=== PATIENT | male | born 1955 | race Caucasian/White ===

== ENCOUNTER 2018-08-17 20:10 | Emergency (ER) | payer OTHER, SELFPAY ==
[2018-08-17 20:25] VITALS: BP 129/78; PULSE 59; RESP 18; TEMP 36.8; O2SAT 98; BMI 28.9
--- NOTE | 2018-08-17 20:34 | ED_ITS ---
HPI - Extremity Injury (Lower) General Chief Complaint: Extremity Injury, Lower Stated Complaint: PAIN IN LEFT LEG Time Seen by Provider: 08/17/18 20:34 Source: patient Mode of arrival: ambulatory Limitations: no limitations History of Present Illness HPI Narrative: Patient is a 62-year-old male here for evaluation of left leg pain. Patient states that 17 days ago he had an inversion injury to his left ankle. He states that he still has some bruising related to that and some discomfort when he walks. He states that a couple days later he did drive back from or again to the local area. Never had his ankle evaluated. He states that today he had a gradual onset of left lateral leg pain just below his knee. No specific trauma. No skin changes. At 1 point he said that he thought that it felt ?hot compared to the other side no chest pain or shortness of breath. Never had a blood clot before. Related Data Home Medications Medication Instructions Recorded Confirmed PYGEUM BARK/ALFALFA/ 1 tab PO Q DAY #0 12/09/11 (#MEN'S MULTIVITAMIN/MULTIMINERAL) ASPIRIN (#ASPIR 81) 81 mg PO Q DAY #0 12/09/11 polyethylene glycol 3350 [Miralax] 17 gm PO QDAY #0 02/01/13 Fish Oil PO DAILY 08/17/18 Vitamin B-1 1 PO DAILY 08/17/18 multivitamin 1 cap PO DAILY 08/17/18 08/17/18 niacin PO DAILY 08/17/18 Previous Rx's Medication Instructions Recorded triamcinolone acetonide [Triderm] 0.1 % TOPICAL BID #60 gm 05/29/17 sulfamethoxazole-trimethoprim 1 tab PO BID #20 tab 11/10/17 testosterone cypionate 200 mg IM QMONTH #1 bot 12/31/17 [Depo-Testosterone] Allergies Allergy/AdvReac Type Severity Reaction Status Date / Time No Known Drug Allergies Allergy Verified 08/17/18 20:30 Review of Systems Constitutional Denies chills and Denies fatigue Cardiovascular Denies chest pain and Denies dyspnea Respiratory Denies dyspnea Gastrointestinal Gastrointestinal: Denies abdominal pain Musculoskeletal Denies myalgias and Denies arthralgias Comments: Left leg pain Integumentary/Breasts Denies lesions and Denies rash Endocrine Denies fatigue Hematologic/Lymphatic Denies easy bleeding and Denies easy bruising [facility] Medical History Healthy adult (Acute) Surgical History No pertinent past surgical history (Acute) History of esophagogastroduodenoscopy (EGD) Status post colonoscopy Status post tonsillectomy and adenoidectomy Family History Child Age: 39 Obesity Grandfather Cancer Grandmother Diabetes mellitus Heart disease Hypertension High cholesterol Mother Diabetes mellitus Heart disease Hypertension High cholesterol Social History Smoking Status: Never smoker Exam Initial Vital Signs Initial Vital Signs: Vital Signs Temperature 98.2 F 08/17/18 20:25 Pulse Rate 59 L 08/17/18 20:25 Respiratory Rate 18 08/17/18 20:25 Blood Pressure 129/78 08/17/18 20:25 Pulse Oximetry 98 08/17/18 20:25 Const General: cooperative, healthy appearing, comfortable, well developed, well groomed and No acute distress Orientation: alert, awake and oriented x3 HENMT Head: normal to inspection and normocephalic Resp Effort & Inspection: normal respiratory effort Skin Lesions: no lesions Rashes: no rashes Neuro General: alert, awake and oriented x3 Motor: muscle tone normal throughout Sensory Exam: no sensory deficits noted Extrem Other: Left hip unremarkable Left thigh unremarkable Left knee unremarkable ACL PCL MCL LCL intact with functional testing No tenderness to palpation along the medial lateral joint line Does have tenderness to palpation over the lateral aspect of the leg. No fibular head tenderness Left calf unremarkable Left ankle unremarkable Psych Appearance: grossly normal and well kempt Course Orders Ordered: ED Orders 08/17/18 20:52 US periph venous low extrem lt Stat Vital Signs - 8 hr 08/17/18 20:25 Temperature 98.2 F Pulse Rate 59 L Respiratory Rate 18 Blood Pressure 129/78 Pulse Oximetry 98 MDM - Extremity Injury (Lower) Imaging Data Venous US: Radiologist's impression: [address] [address] Ultrasound Report Signed Patient: Sumanth Francis R#: [id number] : 4Acct:[id number] Age/Sex: 62 / MDate of Service: 08/17/18 Loc: ED Accession Number: [id number] Procedure: US periph venous low extrem lt Ordering Provider: Ever Avalos D.O. PROCEDURE: US PERIPH VENOUS LOW EXTREM LT INDICATIONS: R/O DVT TECHNIQUE: Real-time imaging, as well as color and pulse Doppler interrogation, were performed of the lower extremity deep veins from the inguinal ligament to the popliteal fossa. COMPARISON: [facility], [place], PVE UNILATERAL LEFT, 08/18/2016, 10:18. FINDINGS: The deep veins are normally compressible, and free of intraluminal thrombus. Color and pulse Doppler demonstrate normal phasic intraluminal flow. There is normal augmentation response to distal compression maneuver. IMPRESSION: Negative for deep venous thrombosis. Note: Concordant preliminary findings given by the battery filler upon the completion of the examination to Dr. Avalos at 2120 hrs. on August 17, 2018. Dictated by: Sky Hart M.D. on 08/17/2018 at 21:44 Approved by: Sky Hart M.D. on 08/17/2018 at 21:45 MDM Narrative Medical decision making narrative: Patient's physical exam is not consistent with cellulitis. Not consistent with a septic joint. He has been asymptomatic in his left proximal fibula area for 15 days. He did have a inversion injury 15 days ago of his ankle however being symptom free for 15 days and suddenly getting the pain makes fracture unlikely. Will hold on x-rays. Ultrasound negative for DVT. I suspect this is muscular. He has no physical exam findings for major ligament injury. I discussed all this with the patient. Will send home with a prepack of [place]. He was given return precautions. Both he and his expressed understanding and agreement with plan. Discharge Plan Departure Patient Disposition: Home Clinical Impression: Left leg pain Instructions: How To Perform RICE (Rest, Ice, Compress, Elevate), DI for Leg Pain Activity Restrictions/Additional Instructions: Recommend that you ice your leg. Take the pain medication as needed. Call your primary care doctor for a follow-up. Return to the emergency department for any new or worsening symptoms Prescriptions: No Action ASPIRIN (#ASPIR 81) 81 mg PO Q DAY Qty: 0 RF: 0 PYGEUM BARK/ALFALFA/ (#MEN'S MULTIVITAMIN/MULTIMINERAL) 1 tab PO Q DAY Qty: 0 RF: 0 polyethylene glycol 3350 [Miralax] 119 GM powder 17 gm PO QDAY Qty: 0 RF: 0 triamcinolone acetonide [Triderm] 0.1 % cream 0.1 % Topical BID Qty: 60 RF: 0 sulfamethoxazole-trimethoprim 800 MG/160 MG tablet 1 tab PO BID Qty: 20 RF: 0 testosterone cypionate [Depo-Testosterone] 200 MG/1 ML oil 200 mg IM QMONTH Qty: 1 RF: 2 multivitamin 1 cap PO DAILY RF: 0 Vitamin B-1 1 PO DAILY RF: 0 Fish Oil PO DAILY RF: 0 niacin PO DAILY RF: 0
--- NOTE | 2018-08-17 20:52 | DI.US.S_ITS ---
PROCEDURE: US PERIPH VENOUS LOW EXTREM LT INDICATIONS: R/O DVT TECHNIQUE: Real-time imaging, as well as color and pulse Doppler interrogation, were performed of the lower extremity deep veins from the inguinal ligament to the popliteal fossa. COMPARISON: [facility], [place], PVE UNILATERAL LEFT, 08/18/2016, 10:18. FINDINGS: The deep veins are normally compressible, and free of intraluminal thrombus. Color and pulse Doppler demonstrate normal phasic intraluminal flow. There is normal augmentation response to distal compression maneuver. IMPRESSION: Negative for deep venous thrombosis. Note: Concordant preliminary findings given by the assistant merchandise manager upon the completion of the examination to Dr. Avalos at 2120 hrs. on August 17, 2018. Dictated by: Sky Hart M.D. on 08/17/2018 at 21:44 Approved by: Sky Hart M.D. on 08/17/2018 at 21:45
[2018-08-17 22:21] VITALS: BP 119/77; PULSE 52; RESP 15; O2SAT 98
[2018-08-17] MEDS: HYDROCODONE/ACET 5/325 PREPACK 1 BOTTLE MISC (22:21)
== END 2018-08-17 22:23 | disposition home or self-care (01) ==
PROVIDERS: Emergency Provider Emergency Medicine; Family Provider Family Medicine; PCP Family Medicine
DX: M79.605 Pain in left leg (principal)
CPT/HCPCS: 93971; 99283; 99284

== ENCOUNTER → 2019-08-25 06:53 | Outpatient (CLI) | payer OTHER, SELFPAY ==
[2019-08-25 08:35] LABS: Add Manual Diff / Slide Review NO; Basophils Absolute Auto 0 /uL (0-100); Basophils Percent Auto 0.6 % (0-2); Eosinophils Absolute Auto 100 /uL (0-450); Hemoglobin 14.6 g/dL (13.5-17.5); Lymphocytes Absolute Auto 1700 /uL (1100-4500); Lymphocytes Percent Auto 28.8 % (25-40); Mean Corpuscular HGB Conc 33.1 % (30-36); Mean Corpuscular Hemoglobin 29.8 PG (26-34); Monocytes Absolute Auto 600 /uL (0-900); Monocytes Percent Auto 10.2 % (3-14); Neutrophils Absolute Auto 3400 /uL (1500-7000); Neutrophils Percent Auto 58.4 % (50-75); Platelet Count 150 X10^3/uL (150-400); Red Blood Cell Count 4.89 X10^6/uL (4.5-5.9); Red Cell Distribution Width 14.8 % (11.6-14.8); White Blood Cell Count 5.7 X10^3/uL (4.5-11.0)
[2019-08-25 09:37] LABS: Alanine Aminotransferase 17 IU/L (21-72); Albumin 4.4 g/dL (3.5-5.0); Albumin Globulin Ratio 1.4 (1.0-2.8); Alkaline Phosphatase 93 U/L (38-126); Aspartate Aminotransferase 35 IU/L (17-59); BUN Creatinine Ratio 27.1 (6-22); Bilirubin Total 0.5 mg/dL (0.2-1.3); Blood Urea Nitrogen 19 mg/dL (9-20); Calcium 9.5 mg/dL (8.4-10.2); Carbon Dioxide 30 mmol/L (22-32); Chloride 102 mmol/L (98-107); Cholesterol 181 mg/dL (140-199); Estimated Glomerular Filt Rate > 60.0 mL/min (>60); Globulin 3.2 g/dL (1.7-4.1); Glucose 101 mg/dL (80-110); HDL Cholesterol 50 mg/dL (40-60); HEMOLYSIS < 15 (0-50); LDL Cholesterol Calculated 115 mg/dL (<100); Potassium 4.4 mmol/L (3.4-5.1); Sodium 140 mmol/L (137-145); Total Protein 7.6 g/dL (6.3-8.2); Triglycerides 81 mg/dL (35-150)
[2019-08-25 10:24] LABS: TSH w/ Reflex to FT4 4.26 uIU/mL (0.47-4.68)
== END ==
PROVIDERS: PCP Family Medicine; Visit Provider Family Medicine
DX: Z00.00 Encounter for general adult medical examination without abnormal findings (principal); Z13.6 Encounter for screening for cardiovascular disorders
CPT/HCPCS: 36415; 80053; 80061; 84443; 85025

== ENCOUNTER → 2019-09-01 11:27 | Outpatient (CLI) | payer OTHER, MEDICARE, SELFPAY | PROVIDERS: PCP Family Medicine; Visit Provider Family Medicine | DX: E29.1 Testicular hypofunction (principal) | CPT/HCPCS: 36415; 84403 ==

== ENCOUNTER 2020-01-20 06:43 | Day surgery (SDC) | payer OTHER, MEDICARE, SELFPAY ==
--- NOTE | 2020-01-20 | PATH_ITS ---
[facility] Accession Number: [id number] . 01 Material submitted: . esophagus, E-G Junction - GE JUNCTION BIOPSIES . 02 Diagnosis: GE Junction Biopsies: Squamocolumnar junctional mucosa with specialized intestinal metaplasia, consistent with Ruiz's esophagus. Negative for dysplasia and malignancy. Special stain for fungal organisms pending; results will be reported as an addendum. MRV 01/21/2020 1151 Local . 02 Electronically signed: . Isabell Rodriguez MD, Pathologist NPI- [id number] . 01 Gross description: . GE JUNCTION BIOPSIES: Received in formalin are multiple fragment(s) of escobar, soft tissue measuring 0.1 x 0.1 x 0.1 cm to 0.2 x 0.2 x 0.2 cm submitted entirely in 1 cassette(s) [place] [place]20202 Local . 02 Pathologist provided ICD-10: Z12.11, K22.70 . 02 CPT . 632144, [id number] Performed at: 01 [facility] [address] [place] [address], [place], [place] [id number] MD Sabino Castañeda MD Phone: [phone] Performed at: 02 [facility] [address] [place], [place] [id number] MD Ariana Cortez MD Phone: [phone]
[2020-01-20] MEDS: SODIUM CHLORIDE 0.9% 1,000 ML 200 ML IV (07:00)
[2020-01-20 07:09] VITALS: BMI 29.0
[2020-01-20 07:15] VITALS: BP 129/74; PULSE 75; RESP 16; TEMP 36.1; O2SAT 96
--- NOTE | 2020-01-20 07:58 | P.HP_ITS ---
History of Present Illness History of Present Illness Date Patient Seen: 01/20/20 Time Patient Seen: 07:58 Chief complaint: [id number] Narrative: Patient is a gentleman with a history of Ruiz's esophagus is last endoscopy was over 10 years ago last colonoscopy was 10 years ago and he is here for screening colonoscopy as well. He has agreed to an upper endoscopy [place] is not been undergoing surveillance for his Ruiz's Patient History Medical History Acute prostatitis (Inactive) Enteritis (Inactive) Healthy adult (Acute) Surgical History History of esophagogastroduodenoscopy (EGD) No pertinent past surgical history (Acute) Status post colonoscopy Status post tonsillectomy and adenoidectomy Family & Social History Family History Child Age: 41 Obesity Grandfather Cancer Grandmother Diabetes mellitus Heart disease Hypertension High cholesterol Mother Diabetes mellitus Heart disease Hypertension High cholesterol Social History: household members spouse Tobacco & Substance use: Smoking Status Never smoker alcohol intake never alcohol intake frequency holiday/special occasion Substance Use Type does not use Meds Home Medications and Allergies Home Medications Medication Instructions Recorded Confirmed Type aspirin [Aspir-81] 81 mg PO DAILY 01/20/20 01/20/20 History cholecalciferol (vitamin D3) 250 unit PO DAILY 01/20/20 01/20/20 History [Vitamin D3] tefqvjxg-wda-zxvxo-vit K-lycop 1 tab PO DAILY 01/20/20 01/20/20 History [Men's Multivitamin] niacin 250 mg PO DAILY 01/20/20 01/20/20 History omega 5-tbb-tvw-fish oil [Fish Oil] 1 cap PO DAILY 01/20/20 01/20/20 History polyethylene glycol 3350 [Miralax] 17 g PO DAILY 01/20/20 01/20/20 History psyllium husk (aspartame) 1.65 g PO DAILY 01/20/20 01/20/20 History [Metamucil Sugar-Free (aspart)] Allergies Allergy/AdvReac Type Severity Reaction Status Date / Time No Known Drug Allergies Allergy Verified 01/20/20 07:09 Review of Systems Review of Systems ROS: Yes All systems reviewed with the patient and are negative except as oth erwise documented Exam Vital Signs (past 8 hours): - 01/20/20 07:15 Temperature 96.9 F L Pulse Rate 75 Respiratory Rate 16 Blood Pressure 129/74 Pulse Oximetry 96 Oxygen Delivery Method Room Air Narrative Exam Narrative: Pleasant cooperative patient no apparent distress. Lungs are clear to auscultation. No rales or rhonchi. Heart regular rate and rhythm no murmur gallop. Abdomen is soft nontender without mass. No obvious hernias. Patient is alert and oriented x3. Assessment & Plan Assessment & Plan narrative: The patient for a screening colonoscopy and an EGD to assess his Ruiz's esophagus. I have discussed the procedures with them. Risks of bleeding, perforation which would necessitate major operation, failure to find remove all lesions, the potential tattoo were all discussed. All questions were answered. They wished to proceed.
--- NOTE | 2020-01-20 08:00 | PM.PREOP ---
Pre-operative Note Interval Note History & Physical reviewed/Exam performed by Physician: Yes Changes to H&P: No ASA Class (for procedural sedation): I
[2020-01-20] MEDS: ONDANSETRON 4 MG/2 ML INJ IV (08:35)
[2020-01-20] MEDS: LIDOCAINE JELLY 2% 5 ML 1 APPLIC TOP (08:36)
--- NOTE | 2020-01-20 08:36 | PM.OP.ENDO ---
Operative Date/Time/Diagnoses Date of procedure: 01/20/20 Time of procedure: 08:36 Pre-op diagnosis: Screening colonoscopy. History of Ruiz's esophagus. Last colonoscopy was 10 years ago and last EGD was over 10 years ago Post-op diagnosis: same Procedure & Clinicians Study performed: Colonoscopy and EGD Same procedure as scheduled: Yes Indications: Surveillance of Ruiz's esophagus. Screening colonoscopy for cancer prevention Surgeon: Mao De Oliveira Procedure Notes SCOAP/Timeout: Performed Procedure in detail: The patient had topical anesthetic applied to oropharynx. She was placed in left lateral decubitus position and underwent IV sedation directed by the surgeon consisting of fentanyl and Versed. A bite block was inserted and the scope was advanced through it into the esophagus. The esophagus was unremarkable. GE junction was noted at 45 cm from the incisors. The stomach insufflated well. There were no lesions seen in the body, antrum or at the incisura. The pyloric channel was narrowed but patent. The duodenum was unremarkable to the 3rd part. The scope was brought back into the stomach and retroflexed. The proximal stomach was normal in appearance. The scope was straightened and brought out through the esophagus again. There was some mild narrowing of the GE junction. Repeated biopsies were taken in this region. The classic appearance of red tongues of tissue extending from the GE junction upwards was not seen. No lesions were seen. The scope was removed and the patient tolerated the procedure well. The patient was placed in the left lateral decubitus position and underwent IV sedation directed by the surgeon consisting of fentanyl and Versed. Digital exam was remarkable for some narrowing and tenderness. I applied 2% lidocaine jelly. Patient was noted to have an enlarged prostate but I could only feel the distal portion of it. The scope was inserted and advanced through the rectum into the sigmoid, descending, transverse, and ascending colon. No lesions were seen. The cecum was reached identified by the ileocecal valve and the appendiceal opening. The scope was gradually brought out. No Polyps were found . The scope ultimately was retroflexed in the rectum. The appearance was normal. The scope was removed and the patient tolerated the procedure well. The prep was very good. Scope withdrawal time: 7 minutes Sedation minutes: 37 Findings: Ruiz's esophagus (History of with mild narrowing of the GE junction) and other findings (Normal colonoscopy) Specimen(s): other (GE junction biopsies) Complications: none Post-procedure Recommendations: Colonscopy in 10 years and EGD in 3 years Follow up: as needed Disposition: PACU
[2020-01-20] MEDS: LIDOCAINE 4% SOLN 50 ML 20 ML TOP (08:37)
[2020-01-20] MEDS: fentaNYL 250 MCG/5 ML INJ IV (08:37)
[2020-01-20] MEDS: MIDAZOLAM 5 MG/5 ML VIAL IV (08:37)
[2020-01-20 08:43] VITALS: BP 108/71; PULSE 62; RESP 12; TEMP 36.6; O2SAT 93
[2020-01-20 08:45] VITALS: BP 106/53; PULSE 71; RESP 15; O2SAT 93
[2020-01-20 09:02] VITALS: BP 111/83; PULSE 71; RESP 15; TEMP 36.4; O2SAT 94
[2020-01-20 09:22] VITALS: BP 108/71; PULSE 65; RESP 24; TEMP 36.2; O2SAT 96
== END 2020-01-20 09:29 | disposition home or self-care (01) ==
PROVIDERS: PCP Family Medicine; Referring Provider Specialist; Visit Provider Specialist
PROC: 0DJD8ZZ Inspection of Lower Intestinal Tract, Via Natural or Artificial Opening Endoscopic (ICD-10-PCS; CPT 45378; principal; 2020-01-20 07:45)
PROC: 0DJ08ZZ Inspection of Upper Intestinal Tract, Via Natural or Artificial Opening Endoscopic (ICD-10-PCS; CPT 43235; 2020-01-20 07:45)
DX: Z12.11 Encounter for screening for malignant neoplasm of colon (principal); K22.70 Barrett's esophagus without dysplasia
CPT/HCPCS: 43239; 45378; 99152; 99153; J2250; J2405; J3010

== ENCOUNTER → 2020-10-12 06:57 | Outpatient (CLI) | payer OTHER, MEDICARE, SELFPAY ==
[2020-10-12 08:32] LABS: Add Manual Diff / Slide Review NO; Eosinophils Absolute Auto 100 /uL (0-450); Lymphocytes Absolute Auto 1800 /uL (1100-4500); Mean Corpuscular Hemoglobin 29.8 PG (26-34)
[2020-10-12 08:36] LABS: Alanine Aminotransferase 17 IU/L (<50); Albumin 4.4 g/dL (3.5-5.0); Albumin Globulin Ratio 1.4 (1.0-2.8); Alkaline Phosphatase 112 U/L (38-126); Aspartate Aminotransferase 32 IU/L (17-59); BUN Creatinine Ratio 22.7 (6-22); Bilirubin Total 0.8 mg/dL (0.2-1.3); Blood Urea Nitrogen 17 mg/dL (9-20); Calcium 9.7 mg/dL (8.4-10.2); Carbon Dioxide 34 mmol/L (22-32); Chloride 103 mmol/L (98-107); Cholesterol 198 mg/dL (140-199); Estimated Glomerular Filt Rate > 60.0 mL/min (>60); Globulin 3.1 g/dL (1.7-4.1); Glucose 106 mg/dL (80-110); HDL Cholesterol 48 mg/dL (40-60); HEMOLYSIS 18 (0-50); LDL Cholesterol Calculated 133 mg/dL (<100); Potassium 5.3 mmol/L (3.4-5.1); Sodium 139 mmol/L (137-145); Total Protein 7.5 g/dL (6.3-8.2); Triglycerides 83 mg/dL (35-150)
[2020-10-12 09:24] LABS: TSH w/ Reflex to FT4 3.57 uIU/mL (0.47-4.68)
[2020-10-12 11:43] LABS: Basophils Absolute Auto 100 /uL (0-100); Eosinophils Percent Auto 1.9 % (2-4); Lymphocytes Percent Auto 29.9 % (25-40); Mean Corpuscular HGB Conc 33.3 % (30-36); Mean Corpuscular Volume 89.5 fL (80-100); Monocytes Absolute Auto 600 /uL (0-900); Monocytes Percent Auto 10.7 % (3-14); Neutrophils Absolute Auto 3400 /uL (1500-7000); Neutrophils Percent Auto 56.5 % (50-75); Platelet Count 161 X10^3/uL (150-400); Red Blood Cell Count 5.03 X10^6/uL (4.5-5.9); Red Cell Distribution Width 14.5 % (11.6-14.8)
== END ==
PROVIDERS: PCP Family Medicine; Referring Provider Family Medicine; Visit Provider Family Medicine
DX: E78.5 Hyperlipidemia, unspecified (principal)
CPT/HCPCS: 36415; 80053; 80061; 84443; 85025

== ENCOUNTER → 2020-10-25 14:27 | Outpatient (CLI) | payer OTHER, MEDICARE, SELFPAY ==
[2020-10-25 15:09] LABS: COVID19 -Nasal RAPID Negative (Negative)
== END ==
PROVIDERS: PCP Family Medicine; Visit Provider Family Medicine
DX: R05 Cough (principal); R52 Pain, unspecified; Z11.59 Encounter for screening for other viral diseases
CPT/HCPCS: 87635

== ENCOUNTER → 2021-06-15 14:46 | Outpatient (CLI) | payer OTHER, MEDICARE, SELFPAY ==
[2021-06-17 12:45] LABS: Interpretation Negative (Negative)
== END ==
PROVIDERS: PCP Family Medicine; Referring Provider Family Medicine; Visit Provider Family Medicine
DX: R10.13 Epigastric pain (principal)
CPT/HCPCS: 83013

== ENCOUNTER → 2022-06-06 09:29 | Outpatient (CLI) | payer OTHER, MEDICARE, SELFPAY ==
[2022-06-06 10:46] LABS: Hematocrit 43.1 % (41-53); Hemoglobin 14.3 g/dL (13.5-17.5); Mean Corpuscular HGB Conc 33.1 % (30-36); Mean Corpuscular Hemoglobin 29.5 PG (26-34); Platelet Count 157 X10^3/uL (150-400); Red Blood Cell Count 4.84 X10^6/uL (4.5-5.9); Red Cell Distribution Width 14.1 % (11.6-14.8); White Blood Cell Count 6.1 X10^3/uL (4.5-11.0)
[2022-06-06 11:03] LABS: Alanine Aminotransferase 21 IU/L (<50); Albumin 4.2 g/dL (3.5-5.0); Albumin Globulin Ratio 1.4 (1.0-2.8); Alkaline Phosphatase 104 U/L (38-126); Aspartate Aminotransferase 38 IU/L (17-59); BUN Creatinine Ratio 19.2 (6-22); Bilirubin Total 0.7 mg/dL (0.2-1.3); Blood Urea Nitrogen 14 mg/dL (9-20); Calcium 9.1 mg/dL (8.4-10.2); Carbon Dioxide 32 mmol/L (22-32); Chloride 103 mmol/L (98-107); Cholesterol 185 mg/dL (140-199); Estimated Glomerular Filt Rate > 60 mL/min (>60); Globulin 3.1 g/dL (1.7-4.1); Glucose 99 mg/dL (80-110); HDL Cholesterol 46 mg/dL (40-60); LDL Cholesterol Calculated 121 mg/dL (<100); Potassium 4.4 mmol/L (3.4-5.1); Sodium 140 mmol/L (137-145); Total Protein 7.3 g/dL (6.3-8.2); Triglycerides 92 mg/dL (35-150)
[2022-06-06 11:13] LABS: HEMOLYSIS < 15 (0-50)
[2022-06-06 11:35] LABS: TSH w/ Reflex to FT4 2.59 uIU/mL (0.47-4.68)
[2022-06-06 14:08] LABS: Prostate Specific Antigen 5.15 ng/mL (0.10-4.00)
== END ==
PROVIDERS: PCP Internal Medicine; Referring Provider Internal Medicine; Visit Provider Internal Medicine
DX: E78.2 Mixed hyperlipidemia (principal); K21.9 Gastro-esophageal reflux disease without esophagitis; N13.8 Other obstructive and reflux uropathy; N40.1 Benign prostatic hyperplasia with lower urinary tract symptoms
CPT/HCPCS: 36415; 80053; 80061; 84153; 84443; 85027

== ENCOUNTER → 2022-06-13 07:28 | Outpatient (CLI) | payer OTHER, MEDICARE, SELFPAY ==
--- NOTE | 2022-06-13 07:30 | DI.MRI.S_ITS ---
PROCEDURE: MR LUMBAR SPINE WO CON INDICATIONS: left-sided sciatica, foot drop TECHNIQUE: Noncontrast sagittal T1 spin echo and T2 fast echo, sagittal STIR, and T2 fast spin echo through the lumbar spine. In cases with scoliosis, additional coronal T2 fast spin echo may be performed. COMPARISON: [facility], , L-SPINE WITHOUT CONTRAST, 10/17/2008, 7:25. FINDINGS: Image quality: Excellent. Alignment and Curvature: There is normal bony alignment. Bone Marrow: Mild Modic type 2 reactive endplate changes noted adjacent to the L4-L5 disc. No acute vertebral body compression fractures. Spinal Cord: Conus medullaris terminates at the L1 level. Visualized cord demonstrates normal signal and size. Paraspinous Soft Tissues: No paravertebral masses. T12-L1: Normal appearance. L1-L2: Normal appearance. L2-L3: Normal appearance. L3-L4: Normal appearance. L4-L5: Loss of disc signal and height. Moderate, diffuse disc bulge. Mild bilateral facet hypertrophy. Moderate narrowing of the central canal. Mild to moderate bilateral neural foraminal narrowing. No neural compression. Fissures noted in the annulus. L5-S1: Loss of disc signal. Mild, diffuse disc bulge. Mild right and moderate left facet hypertrophy. Mild narrowing of the central canal. Mild right and severe left neural foraminal narrowing with compression of the exiting left L5 nerve root. IMPRESSION: 1. Multilevel degenerative disc disease. 2. Multilevel facet arthropathy. 3. No severe central canal narrowing. 4. Severe left L5-S1 neural foraminal narrowing with compression of the exiting left L5 nerve root. 5. L4-L5 disc annulus fissures. Dictated by: Magdalene Doyle MD, PhD on 06/13/2022 at 11:02 Approved by: Magdalene Doyle MD, PhD on 06/13/2022 at 11:08
== END ==
PROVIDERS: PCP Internal Medicine; Referring Provider Internal Medicine; Visit Provider Internal Medicine
DX: M51.16 Intervertebral disc disorders with radiculopathy, lumbar region (principal); M51.17 Intervertebral disc disorders with radiculopathy, lumbosacral region; M47.26 Other spondylosis with radiculopathy, lumbar region; M47.27 Other spondylosis with radiculopathy, lumbosacral region; M48.07 Spinal stenosis, lumbosacral region
CPT/HCPCS: 72148

== ENCOUNTER → 2022-09-07 10:14 | Outpatient (CLI) | payer OTHER, MEDICARE, SELFPAY ==
[2022-09-09 12:42] LABS: PSA Free % 34.5 % (.)
== END ==
PROVIDERS: PCP Internal Medicine; Referring Provider Internal Medicine; Visit Provider Internal Medicine
DX: R97.20 Elevated prostate specific antigen [PSA] (principal)
CPT/HCPCS: 36415; 84153; 84154

== ENCOUNTER 2022-12-09 03:56 | Emergency (ER) | payer OTHER, MEDICARE, SELFPAY ==
--- NOTE | 2022-12-09 03:57 | ED_ITS ---
HPI - Back Pain/Injury General Chief Complaint: Back Pain/Injury Stated Complaint: lower back pain and siatica Time Seen by Provider: 12/09/22 04:00 History of Present Illness HPI Narrative: 67M nonsmoker with history of lumbar radiculopathy, hyperlipidemia, GERD, presents with his in the chief complaint of severe left lower back pain with radiation down his left leg. He is got a history of this and states that he had been in his normal state of health for some time but tweaked it a few days ago when he was putting [place] decorations away and was carrying a box up a few steps when he stepped awkwardly and felt a pulling sensation. He denies any fever chills and does not take blood thinners. He denies any significant traumatic or direct impact event to his lower back. He denies loss of control of bowel or bladder and has no lower extremity weakness but does admit to chronic numbness of his left foot which has been present for quite some time. He states his pain is a 10/10 in sharp and stabbing when he moves and improves to about a 5/10 when he remains still or lies flat. He has been taking Motrin 800 for the past few days but denies any other medications. He last had an MRI last summer and at that time had been scheduled to see Dr. Amato for an injection but improves prior to the appointment so canceled it Related Data Home Medications Medication Instructions Recorded Confirmed aspirin 81 mg tablet,delayed 81 mg PO DAILY 01/20/20 09/06/22 release (Aspir-) bbsjcbni-yuyykphg-ilszk acid 400 1 tab PO DAILY 01/20/20 09/06/22 mcg-vit K 20 mcg-lycop 300 mcg tablet (Men's Multivitamin) omega 9-tah-vum-fish oil 910 cap PO BID 09/20/20 09/06/22 mg-1,400 mg capsule ([place]-3 Fish Oil) Lactobacillus acidophilus 10 10,000 mmu cells PO DAILY 06/06/22 09/06/22 billion cell capsule (Probiotic) lansoprazole 15 mg capsule,delayed 15 mg PO DAILY 09/06/22 09/06/22 release (Prevacid 24Hr) thiamine mononitrate (vit B1) 100 100 mg PO DAILY 09/06/22 09/06/22 mg tablet Previous Rx's Medication Instructions Recorded sildenafil 100 mg tablet (Viagra) 100 mg PO DAILY PRN sexual 08/15/21 activity #20 tabs triamcinolone acetonide 0.1 % 1 applic topical BID PRN rash #15 07/08/22 topical cream (Triderm) grams typhoid vaccin,live,attenuated 2 See Rx Instructions PO .COMPLEX #4 11/29/22 billion unit capsule,delayed caps release cyclobenzaprine 10 mg tablet 10 mg PO TID PRN muscle spasm #14 12/09/22 tabs gabapentin 300 mg capsule 300 mg PO BEDTIME #14 caps 12/09/22 hydrocodone 5 mg-acetaminophen 325 1 tab PO Q4-6H PRN pain #10 tabs 12/09/22 mg tablet ketorolac 10 mg tablet 10 mg PO Q6H PRN pain #14 tabs 12/09/22 methylprednisolone 4 mg tablets in See Rx Instructions PO .COMPLEX 12/09/22 a dose pack (Medrol (Bong)) #21 ea Allergies Allergy/AdvReac Type Severity Reaction Status Date / Time No Known Drug Allergies Allergy Verified 09/06/22 12:44 Review of Systems Review of Systems Narrative: GENERAL: Denies chills, fatigue, malaise, fever, sweats. HEENT: Denies sinus pain, ear pain, sore throat, difficulty swallowing, dizziness. RESPIRATORY: Denies dyspnea, cough, wheezing, hemoptysis, sputum. CARDIOVASCULAR: Denies chest pain, palpitations, orthopnea, edema, GASTROINTESTINAL: Denies nausea, vomiting, abdominal pain, diarrhea, constipation, melena. : Denies dysuria, frequency, incontinence, hematuria, urinary retention. MUSCULOSKELETAL: See HPI SKIN: Denies rash, skin lesions, or other NEUROLOGIC: See HPI PSYCHIATRIC: No concerning psychosocial issues. 12 point review of systems is negative except for those stated above Patient History Medical History Acute prostatitis Ruiz esophagus BPH w urinary obs/LUTS Chicken pox Elevated PSA Enteritis Erectile dysfunction Foot pain (~2007) GERD without esophagitis Healthy adult Hearing loss Hemorrhoid Left sided sciatica Lumbar degenerative disc disease (~1992) Measles Medicare annual wellness visit, initial Mixed hyperlipidemia Numbness of left foot (~2007) Overweight Tinnitus Surgical History History of esophagogastroduodenoscopy (EGD) No pertinent past surgical history Status post colonoscopy Status post tonsillectomy and adenoidectomy Family History Child Age: 44 Obesity Grandfather Cancer Grandmother Diabetes mellitus Heart disease Hypertension High cholesterol Mother Diabetes mellitus Heart disease Hypertension High cholesterol Father Dementia Grandfather Aneurysm Social History marital status: details: (Tran) household members: spouse Smoking Status: Never smoker alcohol intake: never substance use type: does not use Smoking Status: Never smoker alcohol intake frequency: holidays/special occasions only Substance Use Type: does not use Exam Narrative Exam Narrative: GENERAL: [67] year old patient appears stated age. Well-developed patient, in obvious significant pain which clearly improves once he remained still HEAD: Atraumatic. Normocephalic. EYES: Pupils equal round and reactive. Extraocular motions intact. No scleral icterus. No injection or drainage. ENT: Nose without bleeding, purulent drainage. Throat without erythema, tonsillar hypertrophy or exudate. Airway patent. NECK: Trachea midline. Non tender CARDIOVASCULAR: Regular rate and rhythm without murmurs, gallops, or rubs. RESPIRATORY: Clear to auscultation. Breath sounds equal bilaterally. No wheezes, rales, or rhonchi. GASTROINTESTINAL: Abdomen soft, non-tender, nondistended. EXTREMITIES: No edema or joint tenderness. BACK: vat tender but free of any obvious external abnormalities. Patient exam notes decreased range of motion and muscle spasm, but no CVA tenderness, or vertebral point tenderness. There are no symptoms of cauda equina such as saddle anesthesia, and decreased reflexes, decreased sensation or strength. NEURO: AOx3. SKIN: No rash or erythema of visible areas Initial Vital Signs Initial Vital Signs: Vital Signs Temperature 98.1 F 12/09/22 04:06 Pulse Rate 58 L 12/09/22 04:06 Respiratory Rate 17 12/09/22 04:06 Blood Pressure 162/85 H 12/09/22 04:06 Pulse Oximetry 99 12/09/22 04:06 Oxygen Delivery Method 12/09/22 04:06 Course Orders Ordered: Discontinued Medications Hydrocodone Bitart/Acetaminophen (Hydrocodone/Acet 5/325 Prepack) 1 bottle MISC SEEINSTR ONE Stop: 12/09/22 04:10 Last Admin: 12/09/22 04:25 Dose: 1 bottle Documented By: FAROOQ Cyclobenzaprine HCl (Cyclobenzaprine 10 Mg Prepack) 1 bottle MISC SEEINSTR ONE Stop: 12/09/22 04:10 Last Admin: 12/09/22 04:25 Dose: 1 bottle Documented By: FAROOQ Dexamethasone (Dexamethasone 10 Mg/Ml Vial) 10 mg IM NOW ONE Stop: 12/09/22 04:13 Last Admin: 12/09/22 04:23 Dose: 10 mg Documented By: FAROOQ Gabapentin (Gabapentin 300 Mg Capsule) 300 mg PO NOW ONE Stop: 12/09/22 04:10 Last Admin: 12/09/22 04:24 Dose: 300 mg Documented By: FAROOQ Hydromorphone HCl (Hydromorphone 1 Mg Inj) 1 mg IM NOW ONE Stop: 12/09/22 05:58 Last Admin: 12/09/22 06:16 Dose: 1 mg Documented By: FAROOQ Ketorolac Tromethamine (Ketorolac 30 Mg/Ml Vial) 30 mg IM NOW ONE Stop: 12/09/22 04:10 Last Admin: 12/09/22 04:24 Dose: 30 mg Documented By: FAROOQ Lidocaine (Lidocaine Patch 1 Each Adh..Patch) 1 each TOP NOW ONE Stop: 12/09/22 05:58 Last Admin: 12/09/22 06:15 Dose: 1 each Documented By: FAROOQ Vital Signs Vital signs: Vital Signs - 8 hr 12/09/22 04:06 Temperature 98.1 F Pulse Rate 58 L Respiratory Rate 17 Blood Pressure 162/85 H Pulse Oximetry 99 Oxygen Delivery Method Room Air MDM - Back Pain/Injury MDM Narrative Medical decision making narrative: CC: 59-year-old male with known lumbar disease presents with and chief complaint of radicular symptoms down left leg Complicating co-morbidities: Age Data collected from: Patient, Medical records reviewed: including MRI from the summer Differential considered: Muscle spasm, lumbar radiculopathy, cauda equina, epidural abscess, epidural hematoma versus other Exam documented above, pertinent findings include: Pain and spasm, no red flag findings suggestive of a neurosurgical emergency such as weakness, decreased reflexes, saddle anesthesia Imaging studies independently reviewed: None from today's visit, however MRI from this summer demonstrates a disease process consistent with this exam Treatments: Please see above for detailed medications Re-evaluations: Improved symptoms after above-stated therapies, not complete resolution but significant improvement Discussion: Patient with radicular symptoms in the absence of history or physical exam elements suggestive of neurosurgical emergency such as cauda equina, epidural abscess or hematoma Diagnosis: Lumbar radiculopathy Disposition: see below, along with detailed discharge instructions that have been reviewed with patient as well as indications for ED re-evaluation and additional outpatient follow up Discharge Plan Departure Patient Disposition: Home Clinical Impression: Left sided sciatica Instructions: DI for Lumbar Radiculopathy Activity Restrictions/Additional Instructions: *You have been diagnosed with [acute on chronic lumbar radiculopathy] *What to do: *Please continue to take your regular medications as directed. [x] New medication prescriptions sent to your pharmacy: [[facility]] [ ] New medication written as a paper prescription [ ] No new medications given *Please follow up with your primary care provider in 2-3 days, call for an appointment. Let them know you were seen in the Emergency Department and that we ask that you be seen in follow up. We will electronically transmit a record of today's note if your PCP is in our system *If you do not have a primary care provider please contact the [facility] Resource line at [phone]. They will ask some questions about your medical history and help get you set up with a doctor in the community. *Return to Emergency Department if you should have any new, worsening or concerning symptoms, such as [fever greater than 101 F, shaking chills, worsening pain, persistent vomiting or other bothersome symptoms] Prescriptions: New cyclobenzaprine 10 mg tablet 10 mg PO TID PRN (Reason: muscle spasm) Qty: 14 0RF hydrocodone-acetaminophen 5-325 mg tablet 1 tab PO Q4-6H PRN (Reason: pain) Qty: 10 0RF ketorolac 10 mg tablet 10 mg PO Q6H PRN (Reason: pain) Qty: 14 0RF gabapentin 300 mg capsule 300 mg PO BEDTIME Qty: 14 0RF methylprednisolone [Medrol (Bong)] 4 mg tablets,dose pack See Rx Instructions .ROUTE .COMPLEX Qty: 21 0RF Rx Instructions: orally per package directions No Action [place]-3 Fish Oil 910-1,400 mg capsule PO BID sildenafil [Viagra] 100 mg tablet 100 mg PO DAILY PRN (Reason: sexual activity) Qty: 20 3RF Rx Instructions: administer 30 minutes to 4 hours before activity triamcinolone acetonide [Triderm] 0.1 % cream 1 applic Topical BID PRN (Reason: rash) Qty: 15 0RF Rx Instructions: apply sparingly to affected areas twice daily typhoid vaccin,live,attenuated 2 billion unit capsule,delayed release(DR/EC) See Rx Instructions PO .COMPLEX Qty: 4 0RF Rx Instructions: take 1 cap every other day for 4 doses (days 1,3,5,7); finish at least 1wk before exposure PO thiamine mononitrate (vit B1) 100 mg tablet 100 mg PO DAILY lansoprazole [Prevacid 24Hr] 15 mg capsule,delayed release(DR/EC) 15 mg PO DAILY Probiotic 10 billion cell capsule 10,000 mmu cells PO DAILY aspirin [Aspir-81] 81 mg Tablet,Delayed Release (Dr/Ec) 81 mg PO DAILY Men's Multivitamin 400-20-300 mcg Tablet 1 tab PO DAILY Referrals: Farhad Amato DO [Physician] - Hieu Melvin MD [Primary Care Provider] - Ra Francis MD [Physician] - Stand Alone Forms: Patient Portal/API
[2022-12-09 04:06] VITALS: BP 162/85; PULSE 58; RESP 17; TEMP 36.7; O2SAT 99; BMI 28.5
[2022-12-09] MEDS: DEXAMETHASONE 10 MG/ML VIAL IM (04:23)
[2022-12-09] MEDS: GABAPENTIN 300 MG CAPSULE PO (04:24)
[2022-12-09] MEDS: KETOROLAC 30 MG/ML VIAL IM (04:24)
[2022-12-09] MEDS: HYDROCODONE/ACET 5/325 PREPACK 1 BOTTLE MISC (04:25)
[2022-12-09] MEDS: CYCLOBENZAPRINE 10 MG PREPACK 1 BOTTLE MISC (04:25)
[2022-12-09] MEDS: LIDOCAINE PATCH 1 EACH ADH..PATCH TOP (06:15)
[2022-12-09] MEDS: HYDROMORPHONE 1 MG INJ IM (06:16)
[2022-12-09 06:51] VITALS: BP 127/75; PULSE 63; RESP 15; O2SAT 96
== END 2022-12-09 06:53 | disposition home or self-care (01) ==
PROVIDERS: Emergency Provider Emergency Medicine; PCP Internal Medicine
DX: M54.42 Lumbago with sciatica, left side (principal)
CPT/HCPCS: 96372; 99283; J1100; J1170; J1885

== ENCOUNTER → 2022-12-26 13:40 | Outpatient (CLI) | payer OTHER, MEDICARE, SELFPAY ==
--- NOTE | 2022-12-26 13:42 | DI.RAD.S_ITS ---
PROCEDURE: XR LUMBAR SPINE MIN 4V INDICATIONS: BACK PAIN TECHNIQUE: 5 views of the lumbar spine were acquired, including bilateral oblique views. COMPARISON: [facility], MR, MR LUMBAR SPINE WO CON, 06/13/2022, 7:43. FINDINGS: Bones: 5 nonrib-bearing vertebrae are present. There is normal bony alignment. There is loss of intervertebral disc space height at L4-L5 and L5-S1. Small vertebral body osteophytes. Lower lumbar spine facet joint hypertrophy. No vertebral body compression fractures. No suspicious bony lesions. Soft tissues: Overlying bowel gas pattern is normal. No suspicious soft tissue calcifications. Oblique images: No pars defects. IMPRESSION: Moderate DDD most pronounced at L4-L5 and L5-S1. Dictated by: Napoleon Smalls M.D. on 12/26/2022 at 14:43 Approved by: Napoleon Smalls M.D. on 12/26/2022 at 14:52
== END ==
PROVIDERS: PCP Internal Medicine; Referring Provider Physical Medicine & Rehabilitation; Visit Provider Physical Medicine & Rehabilitation
DX: M51.16 Intervertebral disc disorders with radiculopathy, lumbar region (principal); M51.17 Intervertebral disc disorders with radiculopathy, lumbosacral region
CPT/HCPCS: 72110

== ENCOUNTER → 2023-02-01 07:12 | Outpatient (CLI) | payer OTHER, MEDICARE, SELFPAY ==
--- NOTE | 2023-02-01 07:17 | DI.MRI.S_ITS ---
PROCEDURE: MR LUMBAR SPINE WO CON INDICATIONS: RADICULAROPATHY, LUMBAR SACRAL REGION TECHNIQUE: Noncontrast sagittal T1 spin echo and T2 fast echo, sagittal STIR, and T2 fast spin echo through the lumbar spine. In cases with scoliosis, additional coronal T2 fast spin echo may be performed. COMPARISON: [facility], MR, MR LUMBAR SPINE WO CON, 06/13/2022, 7:43. FINDINGS: Image quality: Excellent. Alignment and Curvature: There is normal bony alignment. Bone Marrow: Marrow is of normal overall signal. No acute vertebral body compression fractures. Spinal Cord: Conus medullaris terminates at the as T12/L1 level. Visualized cord demonstrates normal signal and size. Paraspinous Soft Tissues: No paravertebral masses. T12-L1: Normal appearance. L1-L2: Normal appearance. L2-L3: Normal appearance. L3-L4: Facet hypertrophy. No canal stenosis or foraminal stenosis. L4-L5: Unchanged findings. Disc bulge. Facet hypertrophy. Moderate canal stenosis. Mild bilateral foraminal stenosis. L5-S1: Interval development of left posterior annulus tear plus high-signal (relatively acute) disc extrusion with a free fragment extending slightly inferiorly in the left lateral recess, obliterating the left S1 nerve root in the left lateral recess. Bilateral facet hypertrophy. Again noted is severe left foraminal narrowing with left foraminal L5 nerve root impingement. IMPRESSION: 1. Interval development of a left posterior annulus tear plus high-signal disc extrusion and a slightly inferior free fragment in the left lateral recess obliterating the left S1 nerve root. 2. Again noted is severe left foraminal narrowing with foraminal L5 nerve root impingement at L5-S1. 3. Moderate canal stenosis at L4-L5, as before. 4. Multilevel lower lumbar facet arthropathy. Dictated by: Papito Cavanaugh M.D. on 02/03/2023 at 8:23 Approved by: Papito Cavanaugh M.D. on 02/03/2023 at 8:46
== END ==
PROVIDERS: PCP Internal Medicine; Referring Provider Physical Medicine & Rehabilitation; Visit Provider Physical Medicine & Rehabilitation
DX: M51.16 Intervertebral disc disorders with radiculopathy, lumbar region (principal); M51.17 Intervertebral disc disorders with radiculopathy, lumbosacral region; M47.26 Other spondylosis with radiculopathy, lumbar region; M47.27 Other spondylosis with radiculopathy, lumbosacral region; M48.061 Spinal stenosis, lumbar region without neurogenic claudication; M48.07 Spinal stenosis, lumbosacral region
CPT/HCPCS: 72148

== ENCOUNTER → 2023-09-09 09:29 | Outpatient (CLI) | payer OTHER, MEDICARE, SELFPAY ==
[2023-09-09 11:06] LABS: Aspartate Aminotransferase 29 IU/L (17-59); BUN Creatinine Ratio 22.9 (6-22); Blood Urea Nitrogen 16 mg/dL (9-20); Calcium 9.8 mg/dL (8.4-10.2); Carbon Dioxide 25 mmol/L (22-32); Chloride 104 mmol/L (98-107); Cholesterol 181 mg/dL (140-199); Estimated Glomerular Filt Rate > 60 mL/min (>60); Glucose 99 mg/dL (80-110); HDL Cholesterol 45 mg/dL (40-60); HEMOLYSIS < 15 (0-50); LDL Cholesterol Calculated 114 mg/dL (<100); Potassium 4.3 mmol/L (3.4-5.1); Sodium 138 mmol/L (137-145); Triglycerides 112 mg/dL (35-150)
== END ==
PROVIDERS: PCP Internal Medicine; Referring Provider Internal Medicine; Visit Provider Internal Medicine
DX: N40.1 Benign prostatic hyperplasia with lower urinary tract symptoms (principal); N13.8 Other obstructive and reflux uropathy; E78.2 Mixed hyperlipidemia; R97.20 Elevated prostate specific antigen [PSA]
CPT/HCPCS: 36415; 80048; 80061; 84153; 84450

== ENCOUNTER → 2024-01-12 16:59 | Outpatient (CLI) | payer OTHER, MEDICARE, SELFPAY ==
[2024-01-12 18:12] LABS: Appearance Urine UA CLEAR; Bilirubin Urine UA NEGATIVE (NEGATIVE); Color Urine UA YELLOW; Glucose Urine UA NEGATIVE (Negative); Ketones Urine UA NEGATIVE (NEGATIVE); Leukocyte Esterase Urine UA NEGATIVE (NEGATIVE); Nitrite Urine UA NEGATIVE (Negative); Occult Blood Urine UA NEGATIVE (Negative); Protein Urine UA NEGATIVE (Negative); Specific Gravity Urine UA 1.025 (1.000-1.035); Urobilinogen Urine UA 0.2 E.U./dL (0.2)
[2024-01-12 18:23] LABS: Bacteria Urine Occasional (0-1); RBC Urine None Seen (0-5/HPF); Squamous Epithelial Cell Urine None Seen (0-5/HPF); Urine Volume 10mL (spun); WBC Urine 5-10/HPF (0-5/HPF)
[2024-01-12 18:24] LABS: Calcium Oxalate Crystals Urine Few
[2024-01-12 18:25] LABS: Culture Indicated Urine Specimen Cultured
[2024-01-12 20:00] LABS: Prostate Specific Antigen 4.88 ng/mL (0.10-4.00)
== END ==
PROVIDERS: PCP Internal Medicine; Referring Provider Internal Medicine; Visit Provider Internal Medicine
DX: R97.20 Elevated prostate specific antigen [PSA] (principal)
CPT/HCPCS: 36415; 81001; 84153; 87086

== ENCOUNTER → 2024-05-23 16:13 | Outpatient (CLI) | payer OTHER, MEDICARE, SELFPAY | PROVIDERS: PCP Internal Medicine; Visit Provider Nurse Practitioner Family | DX: R10.9 Unspecified abdominal pain (principal) | CPT/HCPCS: 87086 ==

== ENCOUNTER → 2024-06-22 08:38 | Outpatient (CLI) | payer OTHER, MEDICARE, SELFPAY ==
[2024-06-24 07:37] LABS: PSA Free % 27.8 % (.); PSA, Total 5.9 ng/mL (0.0-4.0)
== END ==
PROVIDERS: PCP Internal Medicine; Referring Provider Specialist; Visit Provider Specialist
DX: R97.20 Elevated prostate specific antigen [PSA] (principal)
CPT/HCPCS: 36415; 84153; 84154

== ENCOUNTER → 2024-07-15 06:49 | Outpatient (CLI) | payer OTHER, MEDICARE, SELFPAY ==
[2024-07-15 08:08] LABS: BUN Creatinine Ratio 23.4 (6-22); Blood Urea Nitrogen 18 mg/dL (9-20); Calcium 9.6 mg/dL (8.4-10.2); Carbon Dioxide 25 mmol/L (22-32); Chloride 104 mmol/L (98-107); Estimated Glomerular Filt Rate > 60 mL/min (>60); Glucose 111 mg/dL (80-110); HEMOLYSIS < 15 (0-50); Potassium 4.2 mmol/L (3.4-5.1); Sodium 136 mmol/L (137-145)
== END ==
PROVIDERS: PCP Internal Medicine; Referring Provider Urology; Visit Provider Urology
DX: R31.0 Gross hematuria (principal)
CPT/HCPCS: 36415; 80048

== ENCOUNTER → 2024-07-16 07:55 | Outpatient (CLI) | payer OTHER, MEDICARE, SELFPAY ==
--- NOTE | 2024-07-16 08:00 | DI.CT.S_ITS ---
PROCEDURE: CT IVP A/P W/WO INDICATIONS: 68 y/o M w/ h/o gross hematuria, evaluate upper tracts. TECHNIQUE: Optional 5 mm thick noncontrast images acquired from the diaphragm to the symphysis pubis. After the administration of intravenous contrast, 5 mm thick images acquired from the diaphragm to the symphysis pubis after a 10-minute delay. 2 mm thick coronal and sagittal reformats were then performed of the kidneys and ureters. For radiation dose reduction, the following was used: automated exposure control, adjustment of mA and/or kV according to patient size. COMPARISON: None. FINDINGS: Image quality: Diagnostic Lower chest: Basal atelectasis. Prominent lymph nodes around the esophagus distally, nonspecific, possibly reactive. There are small pericardial calcifications partially seen, also nonspecific. Liver: Subcentimeter lesions are too small to characterize, usually cysts or hemangiomas. No suspicious solid mass Gallbladder and biliary system: Unremarkable, nondilated Pancreas: Mild diffuse atrophy. No definite mass or ductal dilation Spleen: Nonenlarged Adrenals: No discrete nodules Kidneys: Multiple renal cysts are present, some of which in the parapelvic location particularly on the left. No complicated or nodular component identified requiring follow-up. The right anterior cyst probably has some hemorrhagic or proteinaceous components, without enhancement. There is no obstructing calcified stone identified. No suspicious ureter filling defects. Partially duplicated right collecting system joining at the proximal ureter. Vessels and lymph nodes: No abdominal aortic aneurysm. No pathologic lymph nodes by size criteria. Bowel and peritoneum: No small bowel obstruction. No pathologic ascites. Body wall: Small fat containing umbilical hernia Pelvis: Bladder appears unremarkable. The prostate is enlarged and heterogeneous, not well evaluated on this study. Bones: Degenerative changes, no acute or suspicious osseous finding. IMPRESSION: No suspicious solid renal mass. No obstructing calcified stone. Recommend cystoscopy to evaluate the lower tracts in the setting of hematuria. Enlarged heterogeneous prostate, consider PSA and possible MRI correlation Other findings above. Dictated by: Kiko Horton M.D. on 07/17/2024 at 8:19 Approved by: Kiko Horton M.D. on 07/17/2024 at 8:27
== END ==
PROVIDERS: PCP Internal Medicine; Referring Provider Urology; Visit Provider Urology
DX: N28.1 Cyst of kidney, acquired (principal); R31.0 Gross hematuria; N40.0 Benign prostatic hyperplasia without lower urinary tract symptoms; K42.9 Umbilical hernia without obstruction or gangrene
CPT/HCPCS: 74178; Q9967

== ENCOUNTER → 2024-08-13 07:07 | Outpatient (CLI) | payer OTHER, SELFPAY ==
--- NOTE | 2024-08-13 | DI.MRI.S_ITS ---
PROCEDURE: MR LUMBAR SPINE WO CON INDICATIONS: Radiculopathy, lumbosacral region TECHNIQUE: Noncontrast sagittal T1 spin echo and T2 fast echo, sagittal STIR, and T2 fast spin echo through the lumbar spine. In cases with scoliosis, additional coronal T2 fast spin echo may be performed. COMPARISON: [facility], , MR LUMBAR SPINE WO CON, 02/01/2023, 7:31. FINDINGS: Image quality: Excellent. Alignment and Curvature: There is normal bony alignment. Bone Marrow: Marrow is of normal overall signal. No acute vertebral body compression fractures. Spinal Cord: Conus medullaris terminates at the T12-L1 level. Visualized cord demonstrates normal signal and size. Paraspinous Soft Tissues: No paravertebral masses. T12-L1: Normal appearance. L1-L2: Normal appearance. L2-L3: Normal appearance. L3-L4: Unchanged findings. Disc bulge. Facet hypertrophy. No significant canal stenosis or foraminal stenosis. L4-L5: Unchanged findings. Disc height loss. Disc bulge. Facet hypertrophy. Moderate canal stenosis. Mild bilateral foraminal stenosis. L5-S1: Again noted is left posterior tear. Currently, there is a minimal left posterior disc protrusion with resolution of a free disc fragment with significant improvement in the left lateral recess. The left S1 nerve root is no longer severely impinged. Moderate to severe left foraminal narrowing with mild impingement on the left L5 nerve root in the foramen. IMPRESSION: 1. Significant interval improvement at L5-S1. A free disc fragment has resolved. There is annulus tear plus a mild left posterior disc protrusion. Left S1 nerve root is no longer severely impinged. There is moderate to severe left foraminal narrowing. 2. Multilevel facet arthropathy. 3. Moderate unchanged canal stenosis at L4-L5. Dictated by: Papito Cavanaugh M.D. on 08/13/2024 at 8:57 Approved by: Papito Cavanaugh M.D. on 08/13/2024 at 9:04
== END ==
LOC: MRI 07:08
PROVIDERS: PCP Internal Medicine; Referring Provider Physical Medicine & Rehabilitation; Visit Provider Physical Medicine & Rehabilitation
DX: M47.26 Other spondylosis with radiculopathy, lumbar region (principal); M47.27 Other spondylosis with radiculopathy, lumbosacral region; M48.07 Spinal stenosis, lumbosacral region; M48.061 Spinal stenosis, lumbar region without neurogenic claudication
CPT/HCPCS: 72148

== ENCOUNTER → 2024-09-10 07:07 | Outpatient (CLI) | payer OTHER, MEDICARE, SELFPAY ==
[2024-09-10 08:57] LABS: Aspartate Aminotransferase 33 IU/L (17-59); BUN Creatinine Ratio 20.5 (6-22); Blood Urea Nitrogen 16 mg/dL (9-20); Calcium 9.6 mg/dL (8.4-10.2); Carbon Dioxide 27 mmol/L (22-32); Chloride 103 mmol/L (98-107); Cholesterol 187 mg/dL (140-199); Estimated Glomerular Filt Rate > 60 mL/min (>60); Glucose 107 mg/dL (80-110); HDL Cholesterol 57 mg/dL (40-60); HEMOLYSIS < 15 (0-50); LDL Cholesterol Calculated 111 mg/dL (<100); Potassium 4.5 mmol/L (3.4-5.1); Sodium 136 mmol/L (137-145); Triglycerides 95 mg/dL (35-150)
== END ==
PROVIDERS: PCP Internal Medicine; Referring Provider Internal Medicine; Visit Provider Internal Medicine
DX: E78.2 Mixed hyperlipidemia (principal); N40.1 Benign prostatic hyperplasia with lower urinary tract symptoms; N13.8 Other obstructive and reflux uropathy
CPT/HCPCS: 36415; 80048; 80061; 84450

== ENCOUNTER 2024-10-29 09:52 | Day surgery (SDC) | payer OTHER, MEDICARE, SELFPAY ==
--- NOTE | 2024-10-29 | PATH_ITS ---
[facility] Accession Number: [id number] No. of containers..01 Tissue . 01 Material submitted: . esophagus, E-G Junction - GE JUNCTION . 01 Diagnosis: GE junction, biopsy: - Squamous epithelium with reactive changes and no increased intraepithelial eosinophils. - Negative for dysplasia and negative for malignancy. - No columnar junctional epithelium seen to assess for Ruiz's esophagus, despite multiple levels assessment. TXN 11/04/2024 1200 Local . 01 Electronically signed: . Irene Braden MD, Pathologist NPI- [id number] . 01 Gross description: . Received in formalin with two patient identifiers and GE junction, are two escobar soft tissue fragments, 0.3 to 0.5 cm in greatest dimension, submitted in A1. ([id number]) /MRV 11/02/2024 1304 Local . 01 Pathologist provided ICD-10: K22.70 . 01 CPT . 823579 Specimen Comment: A courtesy copy of this report has been sent to [phone] Performed at: [address] [address], [place], [place] [id number] MD Sabino Castañeda MD Phone: [phone]
[2024-10-29 10:15] VITALS: BP 131/85; PULSE 63; RESP 16; TEMP 36.2; O2SAT 96; BMI 29.0
--- NOTE | 2024-10-29 11:13 | PM.HP.1 ---
History of Present Illness History of Present Illness Date Patient Seen: 10/29/24 Time Patient Seen: 11:13 Chief complaint: [facility] [place] Narrative: 69-year-old man with a history of Barretts esophagus here for screening upper endoscopy. Occasional difficulty swallowing no chest or abdominal pain no unintentional weight loss or hematemesis. [facility] Medical History Left BB hemiblock History of kidney stones (12/09/11) Lumbar back pain with radiculopathy affecting left lower extremity Herniated nucleus pulposus, L4-5 Foot pain (~2007) Measles Chicken pox Tinnitus Hearing loss Hemorrhoid Elevated PSA Overweight BPH w urinary obs/LUTS Numbness of left foot (~2007) Erectile dysfunction GERD without esophagitis Ruiz esophagus Lumbar degenerative disc disease (~1992) Left sided sciatica Mixed hyperlipidemia Healthy adult Enteritis Acute prostatitis Surgical History No pertinent past surgical history History of esophagogastroduodenoscopy (EGD) Status post colonoscopy Status post tonsillectomy and adenoidectomy Family History Child Age: 45 Obesity Grandfather Cancer Benign prostatic hyperplasia Grandmother Diabetes mellitus Heart disease Hypertension High cholesterol Stroke Mother Diabetes mellitus Heart disease Hypertension High cholesterol Thyroid disorder Father Dementia Kidney stones Grandfather Aneurysm Daughter Kidney stones Social History marital status: details: (Tran) number of children: 2 household members: spouse Smoking Status: Never smoker alcohol intake: never substance use type: does not use caffeine: Yes Type(s) of exercise: walking frequency: daily Meds Home Medications and Allergies Home Medications Medication Instructions Recorded Confirmed Type aspirin 81 mg tablet,delayed 81 mg PO DAILY 01/20/20 09/09/24 History release (Aspir-) uappjowz-fbsbijbz-moqhs acid 400 1 tab PO DAILY 01/20/20 09/09/24 History mcg-vit K 20 mcg-lycop 300 mcg tablet (Men's Multivitamin) omega 0-pmd-kuw-fish oil 910 cap PO BID 09/20/20 09/09/24 History mg-1,400 mg capsule ([place]-3 Fish Oil) Lactobacillus acidophilus 10 10,000 mmu cells PO DAILY 06/06/22 09/09/24 History billion cell capsule (Probiotic) thiamine mononitrate (vit B1) 100 100 mg PO DAILY 09/06/22 09/09/24 History mg tablet triamcinolone acetonide 0.1 % 1 applic topical BID PRN rash #15 05/24/24 09/09/24 Rx topical cream (Triderm) grams sildenafil 100 mg tablet 100 mg PO DAILY PRN sexual 10/06/24 Rx activity #10 tabs Allergies Allergy/AdvReac Type Severity Reaction Status Date / Time tamsulosin Allergy Intermediate Rash Verified 10/29/24 10:15 doxazosin [From Cardura] AdvReac Severe lowered Verified 10/29/24 10:15 blood pressure rosuvastatin AdvReac Intermediate arthralgias Verified 10/29/24 10:15 Exam Vital Signs (past 8 hours): - 10/29/24 10:15 Temperature 97.2 F L Pulse Rate 63 Respiratory Rate 16 Blood Pressure 131/85 Pulse Oximetry 96 Oxygen Delivery Method Room Air Oxygen Delivery Method Room Air Narrative Exam Narrative: General adult man alert oriented no acute distress Chest nonlabored respiration Extremities warm well perfused Assessment & Plan Assessment and plan (1) Ruiz esophagus: Qualifiers: Ruiz's esophagus type: without dysplasia Qualified Code(s): K22.70 - Ruiz's esophagus without dysplasia Status: Acute Assessment & Plan narrative: The patient requires screening upper endoscopy Technical details were discussed. Risks, benefits, alternatives explained. Risks including but not limited to myocardial infarction, aspiration, bleeding, pain, missed lesion, incomplete examination, need for further radiographic studies, intestinal injury, and need for major abdominal surgery were discussed. All questions were answered to their satisfaction, and they are in agreement with this plan. Time-Based Coding :: [TOTAL MINUTES] spent with patient and on the chart (including review of chart, obtaining history, exam, reviewing outside data, placing orders, documenting exam and treatment plan, and counseling patient) on [DATE].
[2024-10-29 11:29] VITALS: BP 104/72; PULSE 68; RESP 14; TEMP 36.1; O2SAT 93
[2024-10-29 11:34] VITALS: BP 106/79; PULSE 71; RESP 18; O2SAT 93
--- NOTE | 2024-10-29 11:39 | PM.OP.EGD ---
Operative Date/Time/Diagnoses Date of procedure: 10/29/24 Time of procedure: 11:39 Pre-op diagnosis: Barretts esophagus Procedure & Clinicians Study performed: Diagnostic esophagogastroduodenoscopy Same procedure as scheduled: Yes Indications: History of Barretts esophagus without dysplasia here for screening Surgeon: Cristofer Miranda Procedure Notes Procedure in detail: The history and physical was performed/updated and the patient is ASA class is 2. The procedure was discussed in detail with the patient. Potential risks complications including infection, bleeding, missed diagnosis, perforation, need for surgery, and were explained. Their questions were answered and informed consent was obtained. Patient placed in left lateral decubitus position. Time out was performed. Procedural sedation was administered by Anesthesia. A bite block was placed. the scope was inserted into the mouth and advanced through the esophagus and into the stomach. The pylorus was intubated and the duodenum was examined to the 2nd portion. The scope was then withdrawn into the stomach and was retroflexed. The stomach was decompressed and scope was withdrawn slowly through the esophagus. FINDINGS -inflammation of the distal esophagus at the GE junction. Multiple biopsies performed with forceps. -slight narrowing of the GE junction scope easily passes through. The patient tolerated the procedure well and will be discharged when they meet criteria. Specimen(s): other (GE junction) Post-procedure Plan for aftercare: Follow up biopsies. Consider use of PPI therapy Disposition: same day surgery
[2024-10-29 11:40] VITALS: BP 116/82; PULSE 65; RESP 14; TEMP 36.2; O2SAT 94
[2024-10-29 11:45] VITALS: BP 118/84; PULSE 60; RESP 12; O2SAT 94
== END 2024-10-29 12:00 | disposition home or self-care (01) ==
PROVIDERS: PCP Internal Medicine; Referring Provider Surgery; Visit Provider Surgery
PROC: 0DJ08ZZ Inspection of Upper Intestinal Tract, Via Natural or Artificial Opening Endoscopic (ICD-10-PCS; CPT 43239; principal; 2024-10-29 11:00)
DX: K22.70 Barrett's esophagus without dysplasia (principal)
CPT/HCPCS: 43239; J2704

== ENCOUNTER → 2025-01-22 07:49 | Outpatient (CLI) | payer OTHER, MEDICARE, SELFPAY ==
[2025-01-22 10:32] LABS: Prostate Specific Antigen 4.31 ng/mL (0.10-4.00)
== END ==
LOC: LAB 07:51
PROVIDERS: PCP Internal Medicine; Referring Provider Urology; Visit Provider Urology
DX: R97.20 Elevated prostate specific antigen [PSA] (principal); N40.1 Benign prostatic hyperplasia with lower urinary tract symptoms; N13.8 Other obstructive and reflux uropathy
CPT/HCPCS: 36415; 84153

== ENCOUNTER → 2025-09-05 09:29 | Outpatient (CLI) | payer MEDICARE, OTHER, SELFPAY ==
[2025-09-05 10:59] LABS: Prostate Specific Antigen 5.78 ng/mL (0.10-4.00)
== END ==
PROVIDERS: PCP Internal Medicine; Referring Provider Urology; Visit Provider Urology
DX: R97.20 Elevated prostate specific antigen [PSA] (principal)
CPT/HCPCS: 36415; 84153